=== PATIENT | male | born 1950 | race Caucasian/White ===

== ENCOUNTER → 2017-01-19 | Outpatient (CLI) | payer OTHER ==
[2017-01-19 10:53] LABS: BASO % 0.3 %; BASO ABS # 0.02 K/uL (0-0.2); COMPLETE YES; EOS % 4.1 %; HEMATOCRIT 44.8 % (42-52); IG% 0.1 %; LYMPH % 31.7 %; LYMPH ABS # 2.32 K/uL (1.2-3.4); MEAN CELL VOLUME 85.7 fL (80-100); MEAN CORPUSCULAR HEMOGLOBIN 29.3 pg (25-34); MEAN CORPUSCULAR HGB CONC 34.2 g/dl (32-36); MEAN PLATELET VOLUME 10.1 fL (7.4-10.4); MONO % 7.4 %; NEUT % 56.4 %; PLATELET COUNT 206 K/uL (130-400); RED BLOOD COUNT 5.23 M/uL (4.7-6.1); WHITE BLOOD COUNT 7.32 K/uL (4.8-10.8)
[2017-01-19 10:59] LABS: URINE APPEARANCE CLEAR (CLEAR); URINE BILIRUBIN NEG (NEG); URINE COLOR YELLOW; URINE EPITHELIAL CELL AUTO 0-5 /lpf (0-5); URINE NITRITE NEG (NEG); URINE SPECIFIC GRAVITY 1.018 (1.000-1.030); UROBILINOGEN NEG (NEG)
[2017-01-19 11:04] LABS: MANUAL MICROSCOPIC REQUIRED? NO; REVIEW REQ? NO
[2017-01-19 11:06] LABS: PROSTATE SPECIFIC ANTIGEN 2.49 ng/ml (0.000-4.000); URIC ACID 7.5 mg/dl (2.6-7.2)
[2017-01-19 11:09] LABS: BLOOD UREA NITROGEN 19 mg/dl (7-18); BUN/CREATININE RATIO 17.6 (10-20); CARBON DIOXIDE 31 mmol/L (21-32); CHLORIDE 104 mmol/L (98-107); GLUCOSE 95 mg/dl (70-99); HDL CHOLESTEROL 41 mg/dl; POTASSIUM 4.5 mmol/L (3.5-5.1); SODIUM 138 mmol/L (136-145)
[2017-01-19 11:21] LABS: AST/SGOT 16 U/L (15-37); CHOLESTEROL 198 mg/dl (0-200); CHOLESTEROL/HDL RATIO 4.8; LDL CHOLESTEROL CALCULATED 135 mg/dl; TRIGLYCERIDES 112 mg/dl (0-150); VERY LOW DENSITY LIPOPROT CALC 22 mg/dl
[2017-01-19 12:30] LABS: ESTIMATED AVERAGE GLUCOSE 108 mg/dl; HA1C FLAG Normal (Normal)
== END | disposition home or self-care (01) ==
LOC: C.LABBC 07:27
PROVIDERS: ATTEND Internal Medicine
DX: I10 Essential (primary) hypertension (principal)

== ENCOUNTER 2017-03-07 02:16 | Emergency (ER) | payer OTHER ==
[~2017-03-07] VITALS: Ht 193 cm; Wt 97.1 kg
[2017-03-07 02:18] VITALS: TEMP 36.6; Ht 193 cm; Wt 97.1 kg
[2017-03-07 02:26] VITALS: O2SAT 98
[2017-03-07 02:54] LABS: BASO % 0.4 %; BASO ABS # 0.04 K/uL (0-0.2); COMPLETE YES; EOS % 3.8 %; HEMATOCRIT 43.3 % (42-52); IG% 0.3 %; LYMPH % 29.3 %; LYMPH ABS # 2.95 K/uL (1.2-3.4); MEAN CELL VOLUME 85.2 fL (80-100); MEAN CORPUSCULAR HEMOGLOBIN 29.5 pg (25-34); MEAN CORPUSCULAR HGB CONC 34.6 g/dl (32-36); MEAN PLATELET VOLUME 9.5 fL (7.4-10.4); NEUT % 58.2 %; PLATELET COUNT 187 K/uL (130-400); RED BLOOD COUNT 5.08 M/uL (4.7-6.1); WHITE BLOOD COUNT 10.08 K/uL (4.8-10.8)
[2017-03-07 03:13] LABS: BUN/CREATININE RATIO 19.7 (10-20); CALCIUM 9.2 mg/dl (8.5-10.1); CREATININE 1.1 mg/dl (0.60-1.40); MAGNESIUM 2.2 mg/dl (1.8-2.4)
[2017-03-07 03:21] LABS: THYROID STIMULATING HORMONE 2.54 uIu/ml (0.300-4.500)
[2017-03-07] MEDS ORDERED: INDA1TAB3 PO (04:15)
[2017-03-07] MEDS ORDERED: OLME40TA30 PO (04:15)
[2017-03-07 04:39] VITALS: BP 129/83; PULSE 68; O2SAT 97
--- NOTE | 2017-03-07 04:47 | EMERGENCY ROOM VISIT NOTE ---
History Report prepared by Isabella: Gary Hartman Under the Supervision of: Dr. Yanely Swani M.D. First contact with patient: 02:24 Chief Complaint: TACHYCARDIA Stated Complaint: HEART RACING - SWEATS Nursing Triage Summary: pt states he awoke feeling like his heart was racing and felt sweaty.bp at home was elevated per pt. at present c/o feeling "tired." History of Present Illness The patient is a 67 year old male who presents to the Emergency Room with complaints of an episode tachycardia occurring shortly prior to arrival. The patient estimates that the episode lasted for 15 minutes. He states that his symptoms woke him up from his sleep tonight. He states that he had a similar episode occur last night during the night as well. The patient estimates that his heart rate got up to about 100 bpm. He also complains of diaphoresis with his episode. He notes that he has felt fatigued recently. The patient states that he took a half of a 0.25 mg tablet of Alprazolam to sleep tonight. He denies any chest pain. He has a family history of a-fib. The patient has a history of HTN, but no cardiac history. He states that he has a history of RBBB on ECG. He nose that he was off of his diuretic for about a week several weeks ago, and gained a few pounds due to fluid retention. The patient denies any decreased physical endurance. He notes that he has been working a lot recently, and has been under a lot of stress. Source of History: patient Onset: Shortly prior to arrival Symptom Intensity: 100 bpm Quality: other (tachycardia) Timing: other (episode) Associated Symptoms: + diaphoresis, + fatigue, No chest pain Review of Systems See HPI for pertinent positives & negatives. A total of 10 systems reviewed and were otherwise negative. Past Medical & Surgical Medical Problems: (1) HTN (hypertension) Family History No pertinent family history stated. Social History Smoking Status: Never Smoker Marital Status: Housing Status: lives with significant other Occupation Status: employed Current/Historical Medications Scheduled Indapamide (Lozol), 0.625 MG PO DAILY Olmesartan/Hctz (Benicar Hct 40/12.5), 1 TAB PO DAILY Allergies Coded Allergies: No Known Allergies (Unverified , 03/07/17) Physical Exam Vital Signs Date Time Temp Pulse Resp B/P (MAP) Pulse Ox O2 Delivery O2 Flow Rate FiO2 03/07/17 04:39 68 16 129/83 97 Room Air 03/07/17 03:36 73 18 124/74 97 Room Air 03/07/17 02:32 93 18 147/73 98 Room Air 03/07/17 02:30 98 Room Air 03/07/17 02:27 79 03/07/17 02:26 98 Room Air 03/07/17 02:18 36.6 92 20 144/79 98 Room Air Physical Exam Vital signs reviewed. General: Well-appearing male, in no significant distress. HEENT: No scleral icterus, PERRLA, neck supple. Atraumatic. Cardiovascular: Regular rate and rhythm, no extra sounds. Distant heart sounds. Pulmonary: Clear to auscultation bilaterally, normal work of breathing. Abdomen: Soft, nontender, nondistended, positive bowel sounds. Musculoskeletal: Atraumatic, no peripheral edema. Neurologic: Patient awake alert and oriented x 3, full strength in all 4 extremities. Cranial nerves 2 through 12 grossly intact. Skin: Warm, dry, no rash Medical Decision & Procedures ER Provider Diagnostic Interpretation: One View Chest X-ray interpreted by me: No pneumothorax. No failure. No focal lung consolidation. Laboratory Results 03/07/17 02:30 Red Blood Count 5.08, Mean Corpuscular Volume 85.2, Mean Corpuscular Hemoglobin 29.5, Mean Corpuscular Hemoglobin Concent 34.6, Mean Platelet Volume 9.5, Neutrophils (%) (Auto) 58.2, Lymphocytes (%) (Auto) 29.3, Monocytes (%) (Auto) 8.0, Eosinophils (%) (Auto) 3.8, Basophils (%) (Auto) 0.4, Neutrophils # (Auto) 5.87, Lymphocytes # (Auto) 2.95, Monocytes # (Auto) 0.81, Eosinophils # (Auto) 0.38, Basophils # (Auto) 0.04 03/07/17 02:30 Test 03/07/17 02:30 03/07/17 02:39 White Blood Count 10.08 K/uL (4.8-10.8) Red Blood Count 5.08 M/uL (4.7-6.1) Hemoglobin 15.0 g/dL (14.0-18.0) Hematocrit 43.3 % (42-52) Mean Corpuscular Volume 85.2 fL (80-100) Mean Corpuscular Hemoglobin 29.5 pg (25-34) Mean Corpuscular Hemoglobin Concent 34.6 g/dl (32-36) Platelet Count 187 K/uL (130-400) Mean Platelet Volume 9.5 fL (7.4-10.4) Neutrophils (%) (Auto) 58.2 % Lymphocytes (%) (Auto) 29.3 % Monocytes (%) (Auto) 8.0 % Eosinophils (%) (Auto) 3.8 % Basophils (%) (Auto) 0.4 % Neutrophils # (Auto) 5.87 K/uL (1.4-6.5) Lymphocytes # (Auto) 2.95 K/uL (1.2-3.4) Monocytes # (Auto) 0.81 K/uL (0.11-0.59) Eosinophils # (Auto) 0.38 K/uL (0-0.5) Basophils # (Auto) 0.04 K/uL (0-0.2) RDW Standard Deviation 39.4 fL (36.4-46.3) RDW Coefficient of Variation 12.6 % (11.5-14.5) Immature Granulocyte % (Auto) 0.3 % Immature Granulocyte # (Auto) 0.03 K/uL (0.00-0.02) Anion Gap 7.0 mmol/L (3-11) Est Creatinine Clear Calc Drug Dose 80.0 ml/min Estimated GFR () 80.1 Estimated GFR (Non- 69.1 BUN/Creatinine Ratio 19.7 (10-20) Calcium Level 9.2 mg/dl (8.5-10.1) Magnesium Level 2.2 mg/dl (1.8-2.4) Total Bilirubin 0.5 mg/dl (0.2-1) Direct Bilirubin 0.1 mg/dl (0-0.2) Aspartate Amino Transf (AST/SGOT) 17 U/L (15-37) Alanine Aminotransferase (ALT/SGPT) 24 U/L (12-78) Alkaline Phosphatase 72 U/L (45-117) Total Creatine Kinase 182 U/L (39-308) Creatine Kinase MB 1.8 ng/ml (0.5-3.6) Creatine Kinase MB Ratio 1.0 (0-3.0) Total Protein 7.2 gm/dl (6.4-8.2) Albumin 3.6 gm/dl (3.4-5.0) Thyroid Stimulating Hormone (TSH) 2.540 uIu/ml (0.300-4.500) Free Thyroxine 1.17 ng/dl (0.80-1.60) Free Triiodothyronine 3.12 pg/ml (2.30-4.20) Bedside Troponin I < 0.030 ng/ml (0-0.045) Laboratory results per my review. ECG Indication: tachycardia Rate (beats per minute): 75 Rhythm: normal sinus Findings: LAFB, RBBB ED Course 0234: Past medical records reviewed. The patient was evaluated in room B2. A complete history and physical examination was performed. 0440: Upon reevaluation, the patient appeared to have improvement of his symptoms. I discussed findings with him. He verbalized agreement of the treatment plan. The patient was discharged home. Medical Decision Differential diagnosis: Etiologies such as premature contractions, electrolyte abnormality, cardiac dysrhythmia, thyroid dysfunction, pulmonary embolism, infection, gastrointestinal, as well as others were entertained. This patient was evaluated and appeared to be in no distress. IV access was obtained and laboratory work was drawn. The patient was placed on the quality assurance monitor body and found to be in a normal sinus rhythm. EKG reveals no ectopy or dysrhythmia. Patient's laboratory work is unrevealing. Electrolytes are normal. Patient's glucose is 129 however this may be stress induced. Chest x- ray reveals no focal infiltrate or failure. Patient's expresses concern over his amount of stress at work recently. Patient states he has been sleeping well but does seem to have more anxiety lately. He does have a prescription for alprazolam which she will begin to use more regularly for sleep. He was advised to avoid stimulants alcohol. He will continue his medications as prescribed and follow-up with his PCP this week for reevaluation. The patient was also advised to consider Holter monitor and cardiac stress testing. 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 Patient will return to the ER for worsening of symptoms or any medical concerns. Medication Reconcilliation Current Medication List: was personally reviewed by me Blood Pressure Screening Patient's blood pressure: Elevated blood pressure Blood pressure disposition: Elevated BP felt to be situational Impression Primary Impression: Palpitations Scribe Attestation The scribe's documentation has been prepared under my direction and personally reviewed by me in its entirety. I confirm that the note above accurately reflects all work, treatment, procedures, and medical decision making performed by me. Departure Information Dispostion Home / Self-Care Referrals Farrukh Anaya M.D. (PCP) Forms HOME CARE DOCUMENTATION FORM, IMPORTANT VISIT INFORMATION, WORK / SCHOOL INSTRUCTIONS Patient Instructions My [facility] Additional Instructions Diagnosis: Palpitations Drink plenty of fluids. Avoid caffiene, alcohol. Follow up for holter monitor and cardiac stress test. Return to the ED for worsening of symptoms or any medical concerns.
--- NOTE | 2017-03-07 07:41 | DIAGNOSTIC IMAGING REPORT ---
CHEST ONE VIEW PORTABLE CLINICAL HISTORY: 67 years-old Male presenting with tachycardia, SOB. TECHNIQUE: Portable upright AP view of the chest was obtained. COMPARISON: 04/15/2015. FINDINGS: Cardiomediastinal silhouette normal. Lungs and pleural spaces clear. Degenerative changes of the spine. Upper abdomen normal. IMPRESSION: 1. No acute cardiopulmonary disease. Electronically signed by: John Andrews M.D. 03/07/2017 7:40 AM Dictated Date/Time: 03/07/2017 7:39 AM
== END 2017-03-07 04:46 | disposition home or self-care (01) ==
LOC: C.EDB 02:18
DX: R00.2 Palpitations (principal); I45.10 Unspecified right bundle-branch block; I10 Essential (primary) hypertension; Z79.899 Other long term (current) drug therapy

== ENCOUNTER 2024-02-28 19:23 | Observation (INO) ==
--- NOTE | 2024-02-28 19:46 | Emergency Department Note ---
Impression & Plan Chest pain ADMIT ED Provider Note HPI: History obtained from patient. The patient is a 74-year-old gentleman with history of sleep apnea, hypertension, GERD, presents the emergency department today with chief complaint of chest discomfort. Patient states that he developed some discomfort in his chest at about 5 PM. He states it is very dull in nature but seem to be relatively persistent and therefore he came to the ER for evaluation after discussing his symptoms with his sat instructor, Dr. Sanderson. On arrival here to the ED the patient states that his discomfort is improved from previous. Patient is otherwise hemodynamically stable on arrival. He appears to be in no acute distress. ROS: - Per HPI Differential Diagnosis: Acute coronary syndrome, pericarditis, costochondritis, anxiety, esophagitis/GERD, aortic dissection, pulmonary embolism, amongst other potential pathologies. *Outpatient medications and allergy history reviewed. PE: General: Alert HEENT: Normocephalic, trachea midline Eyes: Extraocular eye movement is intact, no scleral erythema Pulmonary: Clear to auscultation bilaterally, no wheezing Cardio: Regular rate and rhythm GI: Abdomen is soft to palpation : No suprapubic tenderness MSK: No evidence of trauma or malformation of the extremities, no edema Skin: No evidence of rash Neuro: Alert, no focal deficits Psychiatric: Cooperative INDEPENDENT INTERPRETATIONS: merry go round attendant: (As interpreted by myself): - An order was placed for continuous cardiac monitoring - Patient was noted to be in sinus rhythm with a rate of 60 EKG: (As interpreted by myself): Rate: 64 Rhythm: Normal sinus rhythm Intervals: QRS 142 ms, otherwise within normal limits ST changes: No ST elevation Time: 1930 Chest x-ray: (As interpreted by myself): No acute disease Medical Decision Making: IV was established and lab work obtained, patient was placed on industrial diamond polisher. Lab work shows no leukocytosis, hemoglobin stable 12.8, platelet count is normal, CMP does not show any evidence of any critical findings. Troponin is negative, EKG per my interpretation shows normal sinus rhythm with a rate of 64, bifascicular block is noted and this does overall appear similar to the previous EKG in the system from January. On my reassessment the patient is resting comfortably in bed, I did discuss the patient's presentation with on-call cardiology for Germania Quinones, Dr. Will, and routine consultation was placed. Patient will be admitted to the hospitalist service overnight with plan for cardiology consultation in the morning to determine the need for further testing. Patient was in agreement to this plan and he was placed for admission in stable condition. Consultants/Discussions held with other healthcare providers: -Cardiology, Dr. Will -Hospitalist, Dr. Martinez Disposition discussion held by myself with: -Patient Diagnosis: 1. Chest pain, acute Disposition: Admission Javier Cortés DO Emergency Medicine Past Med/Surg History Problem List (Updated 02/28/24 @ 23:02 by Javier Cortés DO) Chest pain (Acute) Sleep apnea Unintentional weight loss RBBB Hyperlipidemia Fatigue Flank pain Anemia, mild Health care maintenance BPH NOS w ur obs/LUTS Chronic prostatitis HTN (hypertension) (Chronic) GERD (gastroesophageal reflux disease) (Chronic) Hyperglycemia (Chronic) Tubular adenoma of colon Encounter for pre-operative examination Medical History Osteoarthritis History of hepatitis B Dry eye Hypertension Surgical History History of cataract surgery H/O cervical discectomy History of arthroscopy History of colonoscopy History of tooth extraction History of cardiac cath Family History Mother Family history of diabetes mellitus Breast cancer Father Family history of diabetes mellitus Other No family history of adverse response to anesthesia Denies family history of Ovarian cancer Prostate cancer Myocardial infarction Colorectal cancer Social History Smoking Status: Never smoker Second Hand Exposure: No; Hx Alcohol Use: No Hx Substance Use: No Preferred Language: Guamanian Communication Ability: Effective Visual Impairment: No Limitations Hearing Ability: Normal Animal Care 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 Required: No Beliefs That Will Affect Care: None marital status: Current Living Situation: Spouse current occupational status: employed Other Information That Helps Us Care for You: No Feels Safe at Home: Yes Safety Concerns: Feels Safe At This Time Childhood Exposure to Second-Hand Smoke: No Seatbelt Use: always Sunscreen Use: Yes Assistive Devices: None Allergies Allergies Allergy/AdvReac Type Severity Reaction Status Date / Time lisinopril AdvReac Severe ANGIOEDEMA Verified 02/13/24 16:59 Home Meds Home Medications Medication Instructions Recorded Confirmed pantoprazole 40 mg tablet,delayed 40 mg PO QAM 02/28/24 02/28/24 release Previous Rx's Medication Instructions Recorded alfuzosin 10 mg tablet,extended 10 mg PO DAILY #90 tabs 06/21/23 release 24 hr olmesartan 40 mg tablet 40 mg PO DAILY #90 tabs 09/14/23 alprazolam 0.25 mg tablet 0.25 mg PO DAILY PRN sleep #30 tabs 01/29/24 Results & Data (ED) Vital Signs Vital Signs - 24 hr 02/28/24 19:25 02/28/24 19:45 02/28/24 19:47 Temperature 36.6 C Temperature Source Temporal Artery Scan Pulse Rate 69 62 65 Pulse Rate from SpO2 Sensor 61 Pulse Rhythm Regular Pulse Strength Normal Respiratory Rate 18 16 Respiratory Effort / Characteristics Non-Labored Spontaneous Respiratory Depth Normal Respiratory Pattern Regular Blood Pressure 145/80 H 155/82 H Blood Pressure Mean 101 117 Blood Pressure Position Sitting Pulse Oximetry 97 98 Oxygen Delivery Method Room Air Room Air Sepsis Recent Fever Within 48 Hours No Sepsis New/Unexplained Change in Mental Status N/A Sepsis Action Taken by Nursing No Action Required 02/28/24 20:06 02/28/24 20:11 02/28/24 20:30 Temperature Temperature Source Pulse Rate 63 63 Pulse Rate from SpO2 Sensor 63 62 Pulse Rhythm Pulse Strength Respiratory Rate 18 15 Respiratory Effort / Characteristics Respiratory Depth Respiratory Pattern Blood Pressure Blood Pressure Mean Blood Pressure Position Pulse Oximetry 98 98 98 Oxygen Delivery Method Room Air Room Air Room Air Sepsis Recent Fever Within 48 Hours Sepsis New/Unexplained Change in Mental Status Sepsis Action Taken by Nursing Laboratory Data 02/28/24 19:31 02/28/24 19:31 Lab Results 02/28/24 Range/Units 19:31 WBC 7.42 (4.8-10.8) K/ul RBC 4.39 L (4.70-6.10) M/uL Hgb 12.8 L (14.0-18.0) g/dl Hct 38.4 L (42.0-52.0) % MCV 87.5 (80.0-100.0) fL MCH 29.2 (25.0-34.0) pg MCHC 33.3 (32.0-36.0) g/dL RDW Std Deviation 40.5 (36.4-46.3) fL RDW Coeff of Carlito 12.7 (11.5-14.5) % Plt Count 196 (130-400) K/uL MPV 9.3 L (9.4-12.4) fL Immature Gran % (Auto) 0.1 % Neut % (Auto) 65.3 % Lymph % (Auto) 24.1 % [place] % (Auto) 7.4 % Eos % (Auto) 2.6 % Baso % (Auto) 0.5 % Neut # (Auto) 4.84 (1.40-6.50) K/uL Lymph # (Auto) 1.79 (1.20-3.40) K/uL [place] # (Auto) 0.55 (0.11-0.59) K/uL Eos # (Auto) 0.19 (0.00-0.50) K/uL Baso # (Auto) 0.04 (0.00-0.20) K/uL Immature Gran # (Auto) 0.01 (0.01-0.20) K/uL PT 10.9 (9.0-12.0) Seconds INR 1.0 (0.9-1.1) APTT 26 (21-31) Seconds PTT Ratio 1.0 Sodium 137 (136-145) mmol/L Potassium 4.2 (3.5-5.1) mmol/L Chloride 104 (98-107) mmol/L Carbon Dioxide 29 (21-32) mmol/L Anion Gap 4 (3-11) BUN 20 (6-23) mg/dl Creatinine 1.12 (0.6-1.4) mg/dl Est Cr Clr Drug Dosing 69.2 ml/min Est GFR ( Amer) 74.6 ml/min Est GFR (Non-Af Amer) 64.4 ml/min BUN/Creatinine Ratio 17.9 (10-20) Glucose 114 H (70-99(Fasting)) mg/dl Calcium 9.4 (8.6-10.3) mg/dl Magnesium 2.1 (1.7-2.4) mg/dl Total Bilirubin 0.4 (0.2-1.0) mg/dl AST 19 (13-39) U/L ALT 18 (7-52) U/L Alkaline Phosphatase 57 (34-104) U/L Troponin I High Sens 6.4 (0-20) pg/ml Total Protein 7.4 (6.0-8.3) gm/dl Albumin 4.2 (3.4-5.0) gm/dl Globulin 3.2 (2.5-4.0) gm/dl Albumin/Globulin Ratio 1.3 (0.9-2) Lipase 20 (11-82) U/L Administered Medications Potassium Chloride/Sodium Chloride (Normal Saline W/20 Meq Kcl) 20 meq in 1,000 mls @ 80 mls/hr IV .[id number] JEAN MARIE Stop: 02/29/24 10:44 Last Admin: 02/28/24 22:29 Dose: 80 mls/hr Documented By: DENISE Discontinued Medications Aspirin (Aspirin Chew 324 Mg) 324 mg PO NOW STA Stop: 02/28/24 21:05 Last Admin: 02/28/24 21:12 Dose: Not Given Documented By: DENISE Aspirin (Aspirin Chew 324 Mg) Confirm Administered Dose 324 mg .ROUTE .STK-MED ONE Stop: 02/28/24 21:10 Last Admin: 02/28/24 21:10 Dose: 324 mg Documented By: DENISE Imaging Data Radiologist's Impression: Chest X-Ray 02/28/24 19:29 SINGLE VIEW CHEST CLINICAL HISTORY: Atypical chest pain FINDINGS: 2 AP, portable, upright chest radiographs are compared to chest x-ray and chest CT dated 01/28/2024. The heart is enlarged noting atherosclerotic calcification of the thoracic aorta. The pulmonary vasculature is noncongested. Chronic interstitial thickening is similar to previous. The lungs and pleural spaces are clear. No pneumothorax is seen. The skeletal structures are osteopenic. The bony thorax is grossly intact. IMPRESSION: Cardiomegaly with no active disease in the chest. ACT 112: Negative or not required by law. Electronically signed by: Carlos Garcia M.D. 02/28/2024 9:12 PM Discharge Plan Visit Data Chief Complaint: Chest Pain Stated Complaint: CHEST PAIN ED Provider: Javier Cortés Discharge Problem: Chest pain Patient Disposition: Admitted As Inpatient Discharge Instructions Interventions: ED Discharge Assessment Last Done: 02/28/24 22:52
[2024-02-28 20:00] LABS: Basophils # (auto) 0.04 K/uL (0.00-0.20); Basophils % (auto) 0.5 %; Eosinophils # (auto) 0.19 K/uL (0.00-0.50); Eosinophils % (auto) 2.6 %; Hematocrit (blood only) 38.4 % (42.0-52.0); Hemoglobin 12.8 g/dl (14.0-18.0); Immature Granulocytes # (auto) 0.01 K/uL (0.01-0.20); Immature Granulocytes % (auto) 0.1 %; Lymphocytes # (auto) 1.79 K/uL (1.20-3.40); Lymphocytes % (auto) 24.1 %; Mean Corpuscular Hemoglobin 29.2 pg (25.0-34.0); Mean Corpuscular Hgb Conc 33.3 g/dL (32.0-36.0); Mean Corpuscular Volume 87.5 fL (80.0-100.0); Mean Platelet Volume 9.3 fL (9.4-12.4); Monocytes # (auto) 0.55 K/uL (0.11-0.59); Monocytes % (auto) 7.4 %; Neutrophils # (auto) 4.84 K/uL (1.40-6.50); Neutrophils % (auto) 65.3 %; Platelet Count 196 K/uL (130-400); RDW Coefficient of Variation 12.7 % (11.5-14.5); RDW Standard Deviation 40.5 fL (36.4-46.3); Red Blood Count 4.39 M/uL (4.70-6.10); White Blood Count 7.42 K/ul (4.8-10.8)
[2024-02-28 20:08] LABS: Albumin Globulin Ratio 1.3 (0.9-2); Albumin Level 4.2 gm/dl (3.4-5.0); BUN Creatinine Ratio 17.9 (10-20); Bilirubin,Total 0.4 mg/dl (0.2-1.0); Calcium 9.4 mg/dl (8.6-10.3); Creatinine Clr Calc Pharmacy 69.2 ml/min; Est GFR (African American) 74.6 ml/min; Est GFR (Non-African American) 64.4 ml/min; Globulin 3.2 gm/dl (2.5-4.0); Potassium 4.2 mmol/L (3.5-5.1); Total Protein 7.4 gm/dl (6.0-8.3)
[2024-02-28 20:15] LABS: Troponin I High Sensitivity 6.4 pg/ml (0-20)
[2024-02-28 20:25] LABS: Partial Thromboplastin Time 26 Seconds (21-31); Prothrombin Time 10.9 Seconds (9.0-12.0)
[2024-02-28] MEDS: ASPIRIN CHEW 324 MG ONE (21:10)
[2024-02-28] MEDS: ASPIRIN CHEW 324 MG PO STA (21:12)
--- NOTE | 2024-02-28 21:14 | XRay Report ---
SINGLE VIEW CHEST CLINICAL HISTORY: Atypical chest pain FINDINGS: 2 AP, portable, upright chest radiographs are compared to chest x-ray and chest CT dated . The heart is enlarged noting atherosclerotic calcification of the thoracic aorta. The pulmon julianna vasculature is noncongested. Chronic interstitial thickening is similar to previous. The lungs an d pleural spaces are clear. No pneumothorax is seen. The skeletal structures are osteopenic. The bony thorax is grossly intact. IMPRESSION: Cardiomegaly with no active disease in the chest. ACT 112: Negative or not required by law. Electronically signed by: Carlos Garcia M.D. 02/28/2024 9:12 PM
--- NOTE | 2024-02-28 21:16 | History & Physical Report ---
Date of Service February 28, 2024 Assessment & Plan (1) Chest pain: (2) RBBB with left anterior fascicular block: (3) Hyperlipidemia: (4) Hyperglycemia: (5) HTN (hypertension): (6) Sleep apnea: (7) BPH NOS w ur obs/LUTS: (8) GERD (gastroesophageal reflux disease): Plan Chest pressure/sweats/right bundle branch block with LAFB/ hypertension- The patient will be admitted to telemetry for serial cardiac enzymes, serial EKG's, cardiac rhythm monitoring and a 2-D echocardiogram with Dopplers. Initial troponin 6.4, with follow-up pending Plans are for patient undergo cardiac catheterization in the a.m. Give aspirin 324 mg chewable now, and 81 mg every morning N.p.o. after midnight except medications with sips Place on rosuvastatin 10 mg daily Continue olmesartan 40 mg daily NSS + KCl 20 mill equivalents at 80 mL/h x 1 L, to begin after midnight Consult to interventional cardiology Dr. Reji Rios BPH with LUTS- Tamsulosin substituted for alfuzosin GERD- Continue pantoprazole Sleep apnea- Appliance on order auto CPAP not helpful History of Present Illness Chief Complaint: The patient presents to the emergency department of worsening chest pressure over the past few days, and drenching sweats that occurred between 11-2 in the evening. He reports being excessively fatigued, has had some dyspnea on exertion, despite his usual healthy lifestyle. He had been seen in the emergency department on 01/29/2024 for similar symptoms with a negative workup at that time. Primary Care Provider: Yamil Chacon MD The patient is a 74-year-old male with a past medical history including mild sleep apnea, right bundle branch block, left anterior fascicular block, hyperlipidemia, fatigue, BPH with LUTS, chronic prostatitis, hypertension, GERD, and mild hyperglycemia. He presents to the emergency department with concerns regarding worsening upper sternal area chest pressure and drenching sweats as noted above. He did undergo a workup on 01/29/2024 in the emergency department: With normal appearing chest x-ray, CT angio PE protocol was negative for PE, but did show a 9 mm right upper lobe pulmonary nodule, and CT of abdomen and pelvis with contrast which showed prostatomegaly with evidence of chronic bladder obstruction. He did undergo a trial of auto CPAP which did not help his sleep apnea. He does have an oral appliance which is ordered but has not arrived yet. Allergies Allergy/AdvReac Type Severity Reaction Status Date / Time lisinopril AdvReac Severe ANGIOEDEMA Verified 02/13/24 16:59 Home Medications Medication Instructions Recorded Confirmed Type alfuzosin 10 mg tablet,extended 10 mg PO DAILY #90 tabs 06/21/23 02/28/24 Rx release 24 hr olmesartan 40 mg tablet 40 mg PO DAILY #90 tabs 09/14/23 02/28/24 Rx alprazolam 0.25 mg tablet 0.25 mg PO DAILY PRN sleep #30 tabs 01/29/24 02/28/24 Rx pantoprazole 40 mg tablet,delayed 40 mg PO QAM 02/28/24 02/28/24 History release Past Med/Surg History Problem List (Updated 02/29/24 @ 05:47 by Emmett Martinez MD) RBBB with left anterior fascicular block Chest pain (Acute) Sleep apnea Unintentional weight loss RBBB Hyperlipidemia Fatigue Flank pain Anemia, mild Health care maintenance BPH NOS w ur obs/LUTS Chronic prostatitis HTN (hypertension) (Chronic) GERD (gastroesophageal reflux disease) (Chronic) Hyperglycemia (Chronic) Tubular adenoma of colon Encounter for pre-operative examination Medical History Osteoarthritis History of hepatitis B Dry eye Hypertension Surgical History History of cataract surgery H/O cervical discectomy History of arthroscopy History of colonoscopy History of tooth extraction History of cardiac cath Family History Mother Family history of diabetes mellitus Breast cancer Father Family history of diabetes mellitus Other No family history of adverse response to anesthesia Denies family history of Ovarian cancer Prostate cancer Myocardial infarction Colorectal cancer Social History Smoking Status: Never smoker Second Hand Exposure: No; Hx Alcohol Use: No Hx Substance Use: No Preferred Language: Ghanaian Communication Ability: Effective Visual Impairment: No Limitations Hearing Ability: Normal [place] Required: No Beliefs That Will Affect Care: None marital status: Current Living Situation: Spouse current occupational status: employed Other Information That Helps Us Care for You: No Feels Safe at Home: Yes Safety Concerns: Feels Safe At This Time Childhood Exposure to Second-Hand Smoke: No Seatbelt Use: always Sunscreen Use: Yes Assistive Devices: None Review of Systems Review of Systems: The patient denies palpitations, cough, lower extremity swelling, sore throat, fevers, chills, sweats, nausea, vomiting, diarrhea , constipation, abdominal pain, pelvic pain, blood in urine or stool, lightheadedness, dizziness, headache, memory loss, loss of consciousness, rash, abnormal bruising or bleeding, imbalance, focal weakness, numbness or tingling in arms or legs, generalized arthralgias or myalgias, back or neck pain, or night sweats. The review of systems is otherwise negative other than for that already noted above, and at least 10 systems have been reviewed. Physical Exam Physical Exam: The patient is awake, alert and oriented 3, well developed and well nourished, normocephalic and atraumatic, lying in bed and in no acute distress. HEENT--PERRL, EOMI, mucous membranes and oropharynx normal Neck--supple. No JVD. No bruits. Thyroid normal, trachea midline, no adenopathy. Heart--normal S1 and S2. No murmurs, rubs or gallops. Lungs--clear bilaterally, no respiratory distress, no accessory muscle use. Abdomen--normal bowel sounds and soft. Nontender. Nondistended, no hernias or masses, no organomegaly. Extremities--no cyanosis or clubbing. No edema. Dermatologic--normal skin turgor, normal color, no abnormal lymph nodes, no rash. Neurologic--cranial nerves II through XII grossly intact. Rheumatologic--normal range of motion. Psychiatric--normal affect. Results & Data Results & Data Vital Signs (Past 12 Hours) Vital Signs Temp Pulse Resp BP Pulse Ox O2 Del Method 02/28/24 20:11 98 Room Air 02/28/24 20:06 63 18 98 Room Air 02/28/24 19:47 65 02/28/24 19:45 62 16 155/82 H 98 Room Air 02/28/24 19:25 36.6 C 69 18 145/80 H 97 Room Air Laboratory Results Laboratory Results WBC 7.42 K/ul (4.8-10.8) 02/28/24 19: RBC 4.39 M/uL (4.70-6.10) L 02/28/24 19:31 Hgb 12.8 g/dl (14.0-18.0) L 02/28/24 19: Hct 38.4 % (42.0-52.0) L 02/28/24 19: MCV 87.5 fL (80.0-100.0) 02/28/24 19: MCH 29.2 pg (25.0-34.0) 02/28/24 19: MCHC 33.3 g/dL (32.0-36.0) 02/28/24: RDW Std Deviation 40.5 fL (36.4-46.3) 02/28/24: RDW Coeff of Carlito 12.7 % (11.5-14.5) 02/28/24 19: Plt Count 196 K/uL (130-400) 02/28/24 19: MPV 9.3 fL (9.4-12.4) L 02/28/24 19: Immature Gran % (Auto) 0.1 % 02/28/24 19: Neut % (Auto) 65.3 % 02/28/24 19: Lymph % (Auto) 24.1 % 02/28/24 19: Bandera % (Auto) 7.4 % 02/28/24: Eos % (Auto) 2.6 % 02/28/24 19: Baso % (Auto) 0.5 % 02/28/24 19: Neut # (Auto) 4.84 K/uL (1.40-6.50) 02/28/24 19: Lymph # (Auto) 1.79 K/uL (1.20-3.40) 02/28/24 19: Bandera # (Auto) 0.55 K/uL (0.11-0.59) 02/28/24 19: Eos # (Auto) 0.19 K/uL (0.00-0.50) 02/28/24 19: Baso # (Auto) 0.04 K/uL (0.00-0.20) 02/28/24 19:31 Immature Gran # (Auto) 0.01 K/uL (0.01-0.20) 02/28/24 19:31 PT 10.9 Seconds (9.0-12.0) 02/28/24 19:31 INR 1.0 (0.9-1.1) 02/28/24 19:31 APTT 26 Seconds (21-31) 02/28/24 19:31 PTT Ratio 1.0 02/28/24 19:31 Sodium 138 mmol/L (136-145) 02/29/24 04:34 Potassium 4.1 mmol/L (3.5-5.1) 02/29/24 04:34 Chloride 107 mmol/L (98-107) 02/29/24 04:34 Carbon Dioxide 26 mmol/L (21-32) 02/29/24 04:34 Anion Gap 5 (3-11) 02/29/24 04:34 BUN 17 mg/dl (6-23) 02/29/24 04:34 Creatinine 1.03 mg/dl (0.6-1.4) 02/29/24 04:34 Est Cr Clr Drug Dosing 75.2 ml/min 02/29/24 04:34 Est GFR ( Amer) 82.6 ml/min 02/29/24 04:34 Est GFR (Non-Af Amer) 71.2 ml/min 02/29/24 04:34 BUN/Creatinine Ratio 16.5 (10-20) 02/29/24 04:34 Glucose 94 mg/dl (70-99(Fasting)) 02/29/24 04:34 Calcium 8.6 mg/dl (8.6-10.3) 02/29/24 04:34 Phosphorus 2.8 mg/dl (2.5-4.9) 02/29/24 04:34 Magnesium 1.9 mg/dl (1.7-2.4) 02/29/24 04:34 Total Bilirubin 0.4 mg/dl (0.2-1.0) 02/28/24 19:31 AST 19 U/L (13-39) 02/28/24 19:31 ALT 18 U/L (7-52) 02/28/24 19:31 Alkaline Phosphatase 57 U/L (34-104) 02/28/24 19:31 Troponin I High Sens 6.4 pg/ml (0-20) 02/28/24 19:31 Total Protein 7.4 gm/dl (6.0-8.3) 02/28/24 19:31 Albumin 3.5 gm/dl (3.4-5.0) 02/29/24 04:34 Globulin 3.2 gm/dl (2.5-4.0) 02/28/24 19:31 Albumin/Globulin Ratio 1.3 (0.9-2) 02/28/24 19:31 Lipase 20 U/L (11-82) 02/28/24 19:31 Impressions Chest X-Ray 02/28/24 19:29 SINGLE VIEW CHEST CLINICAL HISTORY: Atypical chest pain FINDINGS: 2 AP, portable, upright chest radiographs are compared to chest x-ray and chest CT dated 01/28/2024. The heart is enlarged noting atherosclerotic calcification of the thoracic aorta. The pulmonary vasculature is noncongested. Chronic interstitial thickening is similar to previous. The lungs and pleural spaces are clear. No pneumothorax is seen. The skeletal structures are osteopenic. The bony thorax is grossly intact. IMPRESSION: Cardiomegaly with no active disease in the chest. ACT 112: Negative or not required by law. Electronically signed by: Carlos Garcia M.D. 02/28/2024 9:12 PM Code Status & VTE Plan Code Status Full code VTE Prophylaxis Plan VTE Prophylaxis will be ordered: Yes PG Care Time/CCT Total # of Minutes Spent Total Time Spent with Patient: Total time spent is greater than 50% in coordination of care (as documented) at patient's floor/unit and/or counseling patient: Coding Level of Care Code 71642 INT INP/OBS CARE 3/75MIN Diagnoses Chest pain R07.9 RBBB with left anterior fascicular block I45.2 Hyperlipidemia E78.5 Hyperglycemia R73.9 HTN (hypertension) I10 Sleep apnea G47.30 BPH NOS w ur obs/LUTS N40.1 GERD (gastroesophageal reflux disease) K21.9
[2024-02-28 21:39] LABS: Magnesium 2.1 mg/dl (1.7-2.4)
[2024-02-28] MEDS ORDERED: ACETAMINOPHEN 325 MG TAB PO PRN (22:13)
[2024-02-28] MEDS: NSS + 20MEQ KCL 20 MEQ/1,000 ML BAG IV SCH (22:29)
[2024-02-29 05:28] LABS: Albumin Level 3.5 gm/dl (3.4-5.0); BUN Creatinine Ratio 16.5 (10-20); Calcium 8.6 mg/dl (8.6-10.3); Creatinine Clr Calc Pharmacy 75.2 ml/min; Est GFR (African American) 82.6 ml/min; Est GFR (Non-African American) 71.2 ml/min; Magnesium 1.9 mg/dl (1.7-2.4); Phosphorus 2.8 mg/dl (2.5-4.9); Potassium 4.1 mmol/L (3.5-5.1)
[2024-02-29 06:37] LABS: Thyroid Stimulating Hormone 1.718 uIu/ml (0.300-4.500)
--- NOTE | 2024-02-29 07:32 | Hospitalist Progress Note ---
Date of Service February 29, 2024 Assessment & Plan (1) Chest pain: Plan: pt presentes with chest pressure/dull ache of extended duration no acute changes on ECG, does show RBBB troponin x 2 normal pending echo and cardiology eval, N.p.o. for possible LHC Give aspirin 324 mg chewable on admission, and [address] on rosuvastatin 10 mg daily Continue olmesartan 40 mg daily to treat chronic stable hypertension slight hyperglycemia on presentation could be secondary to stress (2) Sleep apnea: Plan: recently tested in sleep lab, does not require NIPPV (3) BPH NOS w ur obs/LUTS: Plan: chronic stable on alfuzosin Plan GERD- Continue pantoprazole Admission and Anticipated Discharge Date Admission Date: February 28, 2024 Results & Data Results & Data Vital Signs (Past 12 Hours) Vital Signs Temp Pulse Pulse Resp BP BP Pulse Ox 02/29/24 02:57 98.2 F 76 18 111/69 96 02/29/24 01:00 58 L 02/28/24 23:30 97.7 F 59 L 14 153/74 H 97 02/28/24 22:35 67 17 139/84 96 02/28/24 22:19 73 18 155/82 H 97 02/28/24 22:19 02/28/24 22:00 63 15 139/84 99 02/28/24 21:30 62 19 98 02/28/24 20:30 63 15 98 02/28/24 20:11 98 02/28/24 20:06 63 18 98 02/28/24 19:47 65 02/28/24 19:45 62 16 155/82 H 98 Pulse Ox O2 Del Method O2 Del Method 02/29/24 02:57 Room Air 02/29/24 01:00 02/28/24 23:30 Room Air 02/28/24 22:35 Room Air 02/28/24 22:19 Room Air 02/28/24 22:19 97 Room Air 02/28/24 22:00 Room Air 02/28/24 21:30 Room Air 02/28/24 20:30 Room Air 02/28/24 20:11 Room Air 02/28/24 20:06 Room Air 02/28/24 19:47 02/28/24 19:45 Room Air PG Care Time/CCT Total # of Minutes Spent Total Time Spent with Patient: Total time spent is greater than 50% in coordination of care (as documented) at patient's floor/unit and/or counseling patient: Coding Diagnoses Chest pain R07.9 Sleep apnea G47.30 BPH NOS w ur obs/LUTS N40.1
--- NOTE | 2024-02-29 07:48 | Cardiology Consultation ---
Date of Consultation February 29, 2024 Assessment & Plan (1) Chest pain: 2. Hypertension 3. Mild anemia 4. Mild sleep apnea Dr. Marie here today with atypical chest pain in the setting of profound fatigue. Initial workup reassuring in regards to ACS but some suspicion remains with risk factors and dramatic change in exercise tolerance. After discussion with Dr. Sanderson feel further ischemic evaluation warranted and recommend proceeding directly with cardiac catheterization. Discussed procedure with Dr. Mraie including risk, benefits and he is agreeable to proceed. Plan on procedure later today. If no high risk findings can be discharged to home from a cardiac standpoint following TR band care. Please keep n.p.o. while awaiting procedure. Formal echo pending. History of Present Illness Attending Physician: Hunter Pedro MD History of Present Illness Dr. Angelashad is a 74-year-old man seen today due to recent chest pain, shortness of breath and generally feeling unwell. He is followed by Dr. Sanderson for his cardiac care. Longstanding history of RBBB/LAFB. Had cardiac catheterization 20-25 years ago at [facility] and reportedly had only mild plaque. Medical history includes hypertension, GERD, mild sleep apnea, mild anemia, BPH. Had prolonged symptoms following RSV infection in July and recently treated for prostatitis. Patient states that has been generally feeling unwell all summer but has noted more profound fatigue, lack of energy over the last month. Previously walking more than 1.5 miles a day up hills without difficulty. Now struggles up stairs and feels that his heart is racing. Was seen in the ED 01/28/2024. ECG unchanged, HS TropI negative, CTA unremarkable and per my review no significant coronary artery calcification. Did have limited bedside echo in office with Dr. Sanderson 2 weeks ago which per report showed preserved LV function. Yesterday noted new chest tightness, feeling uneasy with some shortness of breath. HS TropI normal x 2. ECG unchanged. Telemetry unremarkable overnight. Lab work normal except for hemoglobin of 12.8, down from 14.5 11/2023. Allergies Allergy/AdvReac Type Severity Reaction Status Date / Time lisinopril AdvReac Severe ANGIOEDEMA Verified 02/13/24 16:59 Home Medications Medication Instructions Recorded Confirmed Type alfuzosin 10 mg tablet,extended 10 mg PO DAILY #90 tabs 06/21/23 02/28/24 Rx release 24 hr olmesartan 40 mg tablet 40 mg PO DAILY #90 tabs 09/14/23 02/28/24 Rx alprazolam 0.25 mg tablet 0.25 mg PO DAILY PRN sleep #30 tabs 01/29/24 02/28/24 Rx pantoprazole 40 mg tablet,delayed 40 mg PO QAM 02/28/24 02/28/24 History release Patient History Medical History Osteoarthritis History of hepatitis B Dry eye Hypertension Surgical History History of cataract surgery H/O cervical discectomy History of arthroscopy History of colonoscopy History of tooth extraction History of cardiac cath Family History Mother Family history of diabetes mellitus Breast cancer Father Family history of diabetes mellitus Other No family history of adverse response to anesthesia Denies family history of Ovarian cancer Prostate cancer Myocardial infarction Colorectal cancer Social History Smoking Status: Never smoker Second Hand Exposure: No; Hx Alcohol Use: No Hx Substance Use: No Preferred Language: Persian Communication Ability: Effective Visual Impairment: No Limitations Hearing Ability: Normal [employer] Leakage Required: No Beliefs That Will Affect Care: None marital status: Current Living Situation: Spouse current occupational status: employed Other Information That Helps Us Care for You: No Feels Safe at Home: Yes Safety Concerns: Feels Safe At This Time Childhood Exposure to Second-Hand Smoke: No Seatbelt Use: always Sunscreen Use: Yes Assistive Devices: None Review of Systems Review of Systems: All systems reviewed & are unremarkable except as noted in HPI & below Physical Exam Physical Exam: General: Comfortable HEENT: Sclerae anicteric Lungs: Clear to auscultation bilaterally, no crackles or wheezes Cardiac: Regular rate and rhythm, no murmurs. Vascular: 2+ radial Abdomen: Soft, nontender Extremities: Well perfused, no peripheral edema Neuro: Nonfocal Psych: Alert orient x3, normal affect and mood Results & Data Vital Signs (Past 12 Hours) Vital Signs Temp Pulse Pulse Resp BP BP Pulse Ox 02/29/24 07:34 97.7 F 120 H 20 120/69 95 02/29/24 02:57 98.2 F 76 18 111/69 96 02/29/24 01:00 58 L 02/28/24 23:30 97.7 F 59 L 14 153/74 H 97 02/28/24 22:35 67 17 139/84 96 02/28/24 22:19 73 18 155/82 H 97 02/28/24 22:19 02/28/24 22:00 63 15 139/84 99 02/28/24 21:30 62 19 98 02/28/24 20:30 63 15 98 02/28/24 20:11 98 02/28/24 20:06 63 18 98 Pulse Ox O2 Del Method O2 Del Method 02/29/24 07:34 Room Air 02/29/24 02:57 Room Air 02/29/24 01:00 02/28/24 23:30 Room Air 02/28/24 22:35 Room Air 02/28/24 22:19 Room Air 02/28/24 22:19 97 Room Air 02/28/24 22:00 Room Air 02/28/24 21:30 Room Air 02/28/24 20:30 Room Air 02/28/24 20:11 Room Air 02/28/24 20:06 Room Air PG Care Time/CCT Total # of Minutes Spent Total Time Spent with Patient: Total time spent is greater than 50% in coordination of care (as documented) at patient's floor/unit and/or counseling patient: Coding Level of Care Code 72691 IN/OBS CONSULT LVL 4,60M Diagnoses Chest pain R07.9
[2024-02-29] MEDS: ROSUVASTATIN CALCIUM 10 MG TAB PO SCH (08:02)
[2024-02-29] MEDS: LOSARTAN POTASSIUM 50 MG TAB PO SCH (08:02)
[2024-02-29] MEDS: PANTOprazole 40 MG TAB PO SCH (08:02)
[2024-02-29] MEDS: ASPIRIN 81 MG ECTAB PO SCH (08:02)
[2024-02-29] MEDS: TAMSULOSIN HCL 0.4 MG CAP PO SCH (08:02)
--- NOTE | 2024-02-29 08:05 | Electrocardiogram Report ---
Test Reason : Blood Pressure : */* mmHG Vent. Rate : 64 BPM Atrial Rate : 64 BPM P-R Int : 190 ms QRS Dur : 142 ms QT Int : 434 ms P-R-T Axes : 22 -70 55 degrees QTcB Int : 447 ms Normal sinus rhythm Right bundle branch block Left anterior fascicular block Abnormal ECG When compared with ECG of 28-Jan-2024 03:31, No significant change was found Confirmed by Brandon Parker ([id number]) on 02/29/2024 8:05:00 AM Referred By: REFERRED SELF Confirmed By: Brandon Parker
--- NOTE | 2024-02-29 09:58 | Electrocardiogram Report ---
Test Reason : Blood Pressure : */* mmHG Vent. Rate : 67 BPM Atrial Rate : 67 BPM P-R Int : 212 ms QRS Dur : 146 ms QT Int : 444 ms P-R-T Axes : 65 -78 57 degrees QTcB Int : 469 ms Sinus rhythm with 1st degree A-V block Right bundle branch block Left anterior fascicular block Abnormal ECG When compared with ECG of 28-Feb-2024 19:30, No significant change was found Confirmed by Brandon Parker ([id number]) on 02/29/2024 9:58:45 AM Referred By: REFERRED SELF Confirmed By: Brandon Parker
--- NOTE | 2024-02-29 10:14 | XCELERA ---
[id number]
[2024-02-29] MEDS ORDERED: fentaNYL citrate PF 100 MCG/2 ML VIAL ONE (11:36)
[2024-02-29] MEDS ORDERED: HEPARIN (PORCINE) 1000 UNIT/ML 10 ML (CATH LAB USE ONLY) ONE (11:36)
[2024-02-29] MEDS ORDERED: MIDAZOLAM HCL 1 MG/ML 2ML VIAL ONE (11:36)
[2024-02-29] MEDS ORDERED: NITROGLYCERIN/D5W 100MCG/ML 20ML SYR ONE (11:36)
[2024-02-29] MEDS ORDERED: niCARdipine HCL INJ 2.5 MG/ML 10 ML AMP ONE (11:36)
[2024-02-29] MEDS ORDERED: OPTIRAY 350 ONE (11:37)
[2024-02-29] MEDS ORDERED: LIDOCAINE 1% LOCAL 20 ML VIAL ONE (11:38)
--- NOTE | 2024-02-29 12:20 | Pre Anesthesia Assessment ---
Date of Service February 29, 2024 Pre Sedation Assessment Vital Signs Temp Pulse Pulse Resp BP BP Pulse Ox 02/29/24 11:47 107 H 18 138/70 97 02/29/24 11:47 98.2 F 68 18 129/65 98 02/29/24 10:44 63 02/29/24 07:34 97.7 F 120 H 20 120/69 95 02/29/24 02:57 98.2 F 76 18 111/69 96 02/29/24 01:00 58 L 02/28/24 23:30 97.7 F 59 L 14 153/74 H 97 02/28/24 22:35 67 17 139/84 96 02/28/24 22:19 73 18 155/82 H 97 02/28/24 22:19 02/28/24 22:00 63 15 139/84 99 02/28/24 21:30 62 19 98 02/28/24 20:30 63 15 98 02/28/24 20:11 98 02/28/24 20:06 63 18 98 02/28/24 19:47 65 02/28/24 19:45 62 16 155/82 H 98 02/28/24 19:25 97.9 F 69 18 145/80 H 97 Pulse Ox O2 Del Method O2 Del Method 02/29/24 11:47 Room Air 02/29/24 11:47 Room Air 02/29/24 10:44 02/29/24 07:34 Room Air 02/29/24 02:57 Room Air 02/29/24 01:00 02/28/24 23:30 Room Air 02/28/24 22:35 Room Air 02/28/24 22:19 Room Air 02/28/24 22:19 97 Room Air 02/28/24 22:00 Room Air 02/28/24 21:30 Room Air 02/28/24 20:30 Room Air 02/28/24 20:11 Room Air 02/28/24 20:06 Room Air 02/28/24 19:47 02/28/24 19:45 Room Air 02/28/24 19:25 Room Air Cardiovascular + regular rate Respiratory + respiratory effort normal Pre-Sedation Airway Assessment Smoking Status: Never smoker Hx Sleep Apnea: No Hx Difficult Intubation: No Short, Thick Neck: No Thyromental Distance: > or= 3.5 Finger Breadths Oral Cavity: + WNL Mallampati Class: III ASA: ASA3 NPO Status Date of Last Intake of Fluids: 02/28/24 Time of Last Intake of Fluids: 22:00 Date of Last Intake of Solid Food: 02/28/24 Time of Last Intake of Solid Foods: 22:00 Procedure Planning Contraindications for Sedation: none Current Medications Reviewed: Yes Notes The planned sedation has been discussed with the patient. Informed Consent was obtained. I have identified the patient, determined the appropriateness of sedation and have assessed the patient immediately prior to the procedure. All medicine(s) and interventions are by my order.
[2024-02-29 12:56] VITALS: RESP 16; O2SAT 96
--- NOTE | 2024-02-29 13:02 | Post Anesthesia Assessment ---
Date of Service February 29, 2024 Post Sedation Assessment Vital Signs Temp Pulse Pulse Resp BP BP Pulse Ox 02/29/24 12:55 97.9 F 69 16 126/70 96 02/29/24 11:47 107 H 18 138/70 97 02/29/24 11:47 98.2 F 68 18 129/65 98 02/29/24 10:44 63 02/29/24 07:34 97.7 F 120 H 20 120/69 95 02/29/24 02:57 98.2 F 76 18 111/69 96 02/29/24 01:00 58 L 02/28/24 23:30 97.7 F 59 L 14 153/74 H 97 02/28/24 22:35 67 17 139/84 96 02/28/24 22:19 73 18 155/82 H 97 02/28/24 22:19 02/28/24 22:00 63 15 139/84 99 02/28/24 21:30 62 19 98 02/28/24 20:30 63 15 98 02/28/24 20:11 98 02/28/24 20:06 63 18 98 02/28/24 19:47 65 02/28/24 19:45 62 16 155/82 H 98 02/28/24 19:25 97.9 F 69 18 145/80 H 97 Pulse Ox O2 Del Method O2 Del Method 02/29/24 12:55 Room Air 02/29/24 11:47 Room Air 02/29/24 11:47 Room Air 02/29/24 10:44 02/29/24 07:34 Room Air 02/29/24 02:57 Room Air 02/29/24 01:00 02/28/24 23:30 Room Air 02/28/24 22:35 Room Air 02/28/24 22:19 Room Air 02/28/24 22:19 97 Room Air 02/28/24 22:00 Room Air 02/28/24 21:30 Room Air 02/28/24 20:30 Room Air 02/28/24 20:11 Room Air 02/28/24 20:06 Room Air 02/28/24 19:47 02/28/24 19:45 Room Air 02/28/24 19:25 Room Air Recovery Score Activity: Moves 4 extremities Respiration: Deep Breath/Cough Circulation: +/-20% PreAnes Value Consciousness: Fully Awake Oxygen Saturation: O2 needed for >90% Discharge Sedation Level of Care: Fast Track Phase II Post Sedation Plan On clinical assessment, the patient appears to have tolerated the sedation without complications. Patient is recovering as anticipated. Patient will continue to be monitored by nursing and may be discharged when sedation discharge criteria are met per below protocol. Upon Completions of procedure up to 15 minutes continue every 5 minute vital signs and the P.A.R. score; then discharge to a Phase I or Fast Track to Phase II per the following guidelines: * Discharge Patient to appropriate Phase II area if PAR is 8 or greater or return to pre- procedure baseline. The post - procedure orders will be as directed. * If PAR score is less than 8 or not return to pre-procedure baseline then patient will follow Phase I monitoring till PAR is reached for Phase II. The Phase I may be done in procedure room or may call to secure a Phase I area. * If naloxone or flumazenil are used for reversal, hold in Phase I for continued monitoring from when last reversal dose was given for a minimum of 60 minutes or longer pending the nurse and/or physician discretion of patient condition before discharge to Phase II. Please call the Sedation Physician to re-evaluate and complete post-note for discharge to Phase II area. Do NOT discharge from procedure sedation or Phase 1 until post- sedation evaluation note is complete by procedure /sedation MD Sedation Discharge Instructions to be given to the patient at discharge to home.
--- NOTE | 2024-02-29 13:07 | Cardiac Catheterization ---
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 Cardiac Status Clinical evaluation leading to the procedure CAD Presenation: Unstable angina Diagnostic Physicians Name: Tulio Rios MD Closure Device Recommendations: Medical Therapy and/or Counseling Cardiac Cath Procedure Full Procedure Date February 29, 2024 Pre-Procedure Diagnosis Pre-Procedure Diagnosis: Angina AUC Score AUC Score: 7 Post-Procedure Diagnosis Post-Procedure Diagnosis: Normal Coronary Arteries Procedure(s) Performed Procedure(s) Performed: Coronary Angiography and Left Heart Cath Cable Maker Tulio Rios MD Electric Lift Truck Driver(s) Jose Estimated Blood Loss Estimated Blood Loss: 5 Medication(s) Medication(s): Fentanyl, Lidocaine 1%, Nicardipine, Nitroglycerin and Versed Summary of Findings Indication: Suspected angina Access: 6 Fr slender right radial artery Catheters: [place] Findings: LM -normal caliber, no significant disease LAD -medium caliber, mid segment with luminal irregularities and myocardial bridging. Distal vessel wraps around apex. Circumflex -dominant, large caliber, mid segment luminal regularities. Gives off 2 small OM's without significant disease. Left PLB and medium left PDA without disease. RCA -small, nondominant, no significant disease LVEDP -11 Arterial Closure: TR band Summary: 1. Essentially normal coronary arteries with only minimal luminal irregularities 2. Normal intracardiac filling pressure Recommendations: Continued evaluation for noncardiac causes of patient's recent symptoms. Continued ASCVD risk factor modification Hemodynamics Rest Ao:: 130/65/96 Final Ao: 109/57/81 LV: 106/11 Recommendations Recommendations: Medical Therapy and/or Counseling Specimens Specimens: None Radiation Exposure (mGy) 266 Contrast (mls) 40 Anesthesia Moderate [id number] Procedural Complication(s) None Disposition PCU I attest to the content of the Intraoperative Record and any orders documented therein. Any exceptions are noted below. [facility] Card Cath Procedure Codes Cardiac Catheterization Procedure 1: Cardiovascular Cath Procedures: 86976 Coronaries and LHC (+/-LV) Moderate Sedation Procedure 1: Sedation/Anesthesia: 40524 Mod Sedation by the same physician;Init15 Min Child Age 5 & Up PG Care Time/CCT Total # of Minutes Spent Total Time Spent with Patient: Total time spent is greater than 50% in coordination of care (as documented) at patient's floor/unit and/or counseling patient:
[2024-02-29 13:45] VITALS: BP 123/70; PULSE 62; TEMP 97.9
--- NOTE | 2024-02-29 14:24 | Discharge Summary ---
Discharge Summary Date of Service February 29, 2024 Principal Dx & Hospital Course #1 = Principal Diagnosis (1) Chest pain: pt presentes with chest pressure/dull ache of extended duration no acute changes on ECG, does show RBBB troponin x 2 normal pt with left heart cath with non occlusive disease ECHO with normal EF and no significant valvular abnormalities Continue olmesartan 40 mg daily to treat chronic stable hypertension slight hyperglycemia on presentation could be secondary to stress, previous A!C have been normal (2) Sleep apnea: recently tested in sleep lab, does not require NIPPV (3) BPH NOS w ur obs/LUTS: chronic stable on alfuzosin Plan GERD- Continue pantoprazole Notes For Next Care Provider pts biggest complaint is fatigue, had low vit d levels in past, has outpt mono test with equivocal results, c/o night sweats at times perhaps continued work up for exteme fatigue Admission HPI Per Admitting Provider The patient is a 74-year-old male with a past medical history including mild sleep apnea, right bundle branch block, left anterior fascicular block, hyperlipidemia, fatigue, BPH with LUTS, chronic prostatitis, hypertension, GERD, and mild hyperglycemia. He presents to the emergency department with concerns regarding worsening upper sternal area chest pressure and drenching sweats as noted above. He did undergo a workup on 01/29/2024 in the emergency department: With normal appearing chest x-ray, CT angio PE protocol was negative for PE, but did show a 9 mm right upper lobe pulmonary nodule, and CT of abdomen and pelvis with contrast which showed prostatomegaly with evidence of chronic bladder obstruction. He did undergo a trial of auto CPAP which did not help his sleep apnea. He does have an oral appliance which is ordered but has not arrived yet. Discharge Exam awake right wrist is without bruises and intact distal circulation Discharge Plan Discharge Items Patient Disposition: Home - Self-Care Reason For Visit: ATYPICAL CHEST PAIN Discharge Diagnosis: non cardiac chest pain cardiac catheterization without significant Coronary disease Activity: Resume your previous activity Non-emergency contact: Primary Care Provider Call non-emergency contact if: your symptoms worsen Follow-up/Referrals: Yamil Chacon MD [Primary Care Provider] - Diet: Heart Healthy Addtl Attending Provider Instructions: ACTIVITY RECOMMENDATIONS: Excess manipulation of the wrist should be avoided for the next 24-48 hours. * No lifting over 2 pounds (approximately a 1/2 gallon of milk) with the utilized arm for 24 hours. * No strenuous activity such as bowling or tennis for 3 days. * Keep the site of the procedure covered with a bandage for 24 hours. *You may shower the day after the procedure. Do not take a tub bath or submerge the puncture site in water for the next 3 days. *Do not operate any motorized equipment for 3 days. SPECIAL CARE INSTRUCTIONS: The site may be slightly bruised and sore following your procedure. Should any of the following occur, contact the Dr. who performed your procedure. 1. Redness/inflammation, swelling, chills, or fever, or colored drainage at procedure site within 3-7 days after your procedure. 2. Coldness, discoloration, ongoing numbness, severe pain, or swelling. Expect mild tingling of hand and tenderness at the puncture site for up to three days. If this persists beyond three days, or other symptoms develop, notify the Dr. who performed your procedure. BLEEDING: If the procedure site on your wrist begins to bleed, do not panic 1. Place 1 or 2 fingers firmly just slightly above the insertion site to stop the bleeding. You may be able to feel your pulse as you hold pressure. 2. Lift your finger after 5 minutes to see if the bleeding has stopped. 3. Once the bleeding has stopped, gently wipe the wrist area clean with a bandage. * If the bleeding from your wrist does not stop after 10 minutes, or if there is a large amount of bleeding or spurting, call 911 (do not drive yourself to the hospital). SKIN IRRITATION: * You may experience some redness and/or swelling in the area where radiation was administered. If any skin irritation occurs, please contact your family physician. FOLLOW UP VISIT: Keep any scheduled doctor appointments. Addtl Building Cleaner Provider Instructions: Sathya, congratulations on your heart catheterization being clear of significant coronary disease. Please try to look into ways to reduce stressors in your life, keep alcohol and caffeine to a minimal amount, try to acheive good sleep and follow up with your primary care provider in the past your vitamin D level had been low, this can be associated with fatigue, consider vitamin d supplementation or a level recheck Pending Studies at Discharge: No Stand-Alone Forms: My [employer], Work/School Release, Smoking Cessation Medications and DC Order Prescriptions: Continued olmesartan 40 mg tablet 40 mg PO DAILY Qty: 90 3RF Patient Comments: QAM alprazolam 0.25 mg tablet 0.25 mg PO DAILY PRN (Reason: sleep) Qty: 30 0RF alfuzosin 10 mg tablet extended release 24 hr 10 mg PO DAILY Qty: 90 3RF Rx Instructions: administer after the same meal each day pantoprazole 40 mg tablet,delayed release (DR/EC) 40 mg PO QAM Discharge Orders: Discharge Order (Routine); Ordered 02/29/24 Ordered By: Hunter Pedro Admission Data Admit Date/Time: 02/28/24 21:14 Attending Provider: Hunter Pedro Admit Provider: Emmett Martinez Primary Care Provider: Yamil Chacon Other Providers: Emmett Martinez; Tulio Rios Hospital Stay Data Consultations 02/28/24 20:37 ED Decision to Admit Stat 02/28/24 20:38 Consult Cardiology Routine Procedures Performed Operation Date: 02/29/24 12:30 Actual Procedures p Cineradiography w/Routine Exam - Tulio Rios MD p Cath, Left with Cors and Vent - Tulio Rios MD Diagnostic Imagining Performed 02/29/24 11:42 CL Cath Imgs for PACS use only Routine Pending Results Patient Have Any Pending Studies at Discharge: No Discharge Instructions Given to Patient (Per Discharging Provider) ACTIVITY RECOMMENDATIONS: Excess manipulation of the wrist should be avoided for the next 24-48 hours. * No lifting over 2 pounds (approximately a 1/2 gallon of milk) with the utilized arm for 24 hours. * No strenuous activity such as bowling or tennis for 3 days. * Keep the site of the procedure covered with a bandage for 24 hours. *You may shower the day after the procedure. Do not take a tub bath or submerge the puncture site in water for the next 3 days. *Do not operate any motorized equipment for 3 days. SPECIAL CARE INSTRUCTIONS: The site may be slightly bruised and sore following your procedure. Should any of the following occur, contact the DrMarsha who performed your procedure. 1. Redness/inflammation, swelling, chills, or fever, or colored drainage at procedure site within 3-7 days after your procedure. 2. Coldness, discoloration, ongoing numbness, severe pain, or swelling. Expect mild tingling of hand and tenderness at the puncture site for up to three days. If this persists beyond three days, or other symptoms develop, notify the Dr. who performed your procedure. BLEEDING: If the procedure site on your wrist begins to bleed, do not panic 1. Place 1 or 2 fingers firmly just slightly above the insertion site to stop the bleeding. You may be able to feel your pulse as you hold pressure. 2. Lift your finger after 5 minutes to see if the bleeding has stopped. 3. Once the bleeding has stopped, gently wipe the wrist area clean with a bandage. * If the bleeding from your wrist does not stop after 10 minutes, or if there is a large amount of bleeding or spurting, call 911 (do not drive yourself to the hospital). SKIN IRRITATION: * You may experience some redness and/or swelling in the area where radiation was administered. If any skin irritation occurs, please contact your family physician. FOLLOW UP VISIT: Keep any scheduled doctor appointments. Total Time Total Time Spent Total Time Spent (In Minutes): greater than 30 mintues required to compete discharge Coding Level of Care Code 74535 INP/OBS DISCH >30 MIN Diagnoses Chest pain R07.9 Sleep apnea G47.30 BPH NOS w ur obs/LUTS N40.1
== END 2024-02-29 15:23 | disposition home or self-care (01) ==
LOC: ED 19:23 → EDINP 19:23 → SUATTDRO 21:14 → 4W 22:52